=== PATIENT | female | born 1935 | race Caucasian/White ===

== ENCOUNTER 2020-07-13 17:18 | Emergency (ER) | payer MEDICARE, BC ==
[~2020-07-13] VITALS: Ht 154.9 cm; Wt 59.0 kg
--- NOTE | 2020-07-13 17:46 | NUR ---
pt in [place]
--- NOTE | 2020-07-13 18:34 | NUR ---
Pt resting in bed waiting on ortho orders to be done
[2020-07-13 18:58] VITALS: BP 123/67
== END 2020-07-13 18:50 | disposition home or self-care (01) ==
LOC: ER 17:19
DX: S50.312A Abrasion of left elbow, initial encounter (principal); S09.90XA Unspecified injury of head, initial encounter; I48.91 Unspecified atrial fibrillation; Z88.2 Allergy status to sulfonamides; Z96.649 Presence of unspecified artificial hip joint; W10.8XXA Fall (on) (from) other stairs and steps, initial encounter; Y93.89 Activity, other specified; Y92.89 Other specified places as the place of occurrence of the external cause; Y99.8 Other external cause status
CPT/HCPCS: 70450; 72125; 93005; 99285